=== PATIENT | female | born 1970 | race Caucasian/White ===

== ENCOUNTER 2025-01-16 22:14 | Emergency (ER) | payer MEDICARE, MEDICAID, SELFPAY ==
[2025-01-16 22:14] VITALS: RESP 18; O2SAT 78; BMI 44.6
[2025-01-16] MEDS: EPINEPHrine 0.1 MG/ML 10ML SYRINGE (CRASH CART) 1 MG IV ×8 (22:16→22:39)
[2025-01-16] MEDS: CALCIUM CHLORIDE 1GM/10ML SYRINGE (CRASH CART) 1 GM IVP (22:20)
[2025-01-16 22:46] LABS: VBG Base Excess -28.1 mmol/L (-2.4-2.3); VBG HCO3 9.8 mmol/L (23-30); VBG Oxygen Saturation 52.6 % (50-70); VBG PO2 47.4 mmol/L (28-40); VBG Total CO2 12.9 mmol/L (23-27)
[2025-01-16 22:47] LABS: Lactate Venous 21.9 mmol/L (0.4-2.0); VBG PCO2 103.3 mmol/L (35-51); VBG PH 6.59 mmol/L (7.31-7.41)
--- NOTE | 2025-01-16 23:31 | HMH.EDGENADL ---
Discharge Plan Disposition Patient Disposition: Date/Time: 01/16/25 10:40 Clinical Impressions Clinical Impression: Cardiac arrest, Hypertension Type 2 diabetes mellitus Qualifiers: Diabetes mellitus intermediate insulin use: with terminal carman use Discharge ED Provider: Polly Fischer Adult HPI General Stated complaint: Cardiac Arrest Time Seen by Provider: 01/16/25 22:45 Mode of Arrival: EMS Source of Information: EMS History of Present Illness HPI narrative: Patient is a 54-year-old female presenting in cardiac arrest. EMS states they were called to the house for complaint of unresponsive. They stated on their arrival, patient was awake and oriented complaining of cough and shortness of breath. In the custody of EMS, patient became acutely unresponsive and had an initial rhythm of PEA. EMS reports giving 6 epis and amp of bicarb. Patient's blood glucose was 325 for EMS. No additional information obtainable due to patient code. [facility] Disclaimer: The information contained in this section may have been updated after the patient was seen, as this information can be updated by other users. Social History (Updated 01/16/25 @ 23:50 by Polly Fischer MD) Smoking Status: Current every day smoker alcohol intake: current current occupational status: unemployed Travel in the last 8 weeks: None ROS Obtained: Yes unobtainable due to endotracheal tube Physical Exam General General appearance: obtunded and other (Unresponsive) Head Head exam: atraumatic and normocephalic Eye Eye exam: Present PERRL (4 mm bilaterally); Absent jaundice or conjunctival injection ENT ENT exam: Present other (ETT in place with bloody secretions) Chest Chest inspection: Present other (Rei device in place) Respiratory Respiratory exam: Present other (Rhonchorous breath sounds bilaterally) Cardiovascular Cardiovascular exam: Present other (Asystole) Abdominal Exam Abdominal exam: Present soft; Absent distention Extremities Exam Extremities exam: Present normal inspection Neurological Exam Neurological exam: Present other (GCS 3) Skin Skin exam: Present cyanosis and mottled Medical Decision Making Medical Records Screening: Per USPSTF and CDC recommendations, given the prevalence of disease in our region, it is our hospital?s policy to screen for HIV and viral Hepatitis for all patients aged 18 and over and those with ongoing risk factors. Brian Inquiry Pt receiving controlled substance: No Brian was queried for this patient: No Lab Data Lab results reviewed: Yes I reviewed the patient's lab results. Lab Results 01/16/25 22:43: VBG pH 6.59 L, VBG pCO2 103.3 H, VBG pO2 47.4 H, VBG HCO3 9.8 L, VBG Total CO2 12.9 L, VBG O2 Saturation 52.6, VBG Base Excess -28.1 L, VBG Lactic Acid 21.9 H Orders (Tests/Meds): ORDERS Category Date Time Status Venous Blood Gas Routine RT 01/16/25 22:43 Completed Medical Decision Narrative: In summary, this is a 54-year-old female presenting as CODE BLUE. Differential diagnosis includes but is not limited to, GA, PE, CVA, acute pulmonary hemorrhage, tension pneumothorax, aortic dissection, among others. Patient coded by EMS for 25 minutes prior to arrival. They reported a single instance of V. tach that was shocked. Patient's initial rhythm was PEA. On arrival, patient on the Rei which was in appropriate position for adequate pulse palpation. Patient was placed on the ZOLL. Patient given 1 g of calcium, 1 L normal saline and 7 doses of epinephrine. Every pulse check resulted in asystole. IV access was difficult, resulting in IO placed in the patient's right lower extremity. A VBG was ultimately obtained and resulted in severe acidosis of 6.5 with elevated lactate greater than 20. Patient's family came to bedside and were understanding of the futility of the situation. Patient had been coding in our department for 26 minutes, totaling 51 minutes without shockable rhythm. High concern for PE given hemorrhage in the patient's ETT and acute decompensation. Patient has a history of DM and tobacco use. Patient's states she has been sick for approximately 2 weeks and coughing significantly. He gave her coughing medicine today. Efforts were ceased and time of called at 2240. Polly Fischer MD Procedures Central Line Placement Left Femoral: Time Out Performed: No Patient Placed on Monitor/Pulse Ox: Yes Prep: mask and gloves Central Line Prep: Chlorhexidine scrub Ultrasound Used for Placement: Yes Central Line Lumen Inserted: triple Complications: catheter malposition Additional Comments: Blood return from single port, not confident in placement. Line removed and pressure held. IO Right Tibia: Time Out Performed: No IO Instrument Used to Penetrate the Cortex: battery powered IO drill Patient Tolerated Procedure: no complications Complications: none Critical Care Critical Care Time Critical Care Time: Yes Attestation: On 01/16/25, the high probability of a clinically significant, sudden or life threatening deterioration of the following system(s) required my full and direct attention, intervention and personal management. The time I documented below is in addition to time spent performing reported procedures but includes the following listed in this critical care notation. Total Time Total Critical Care Time: 60
--- NOTE | 2025-01-16 23:55 | PC.NURSE ---
[facility] called stating she is suitable for donation but awaiting release from staff psychiatrist. Stated they would call back within 1 hour if they had not had a call back.
--- NOTE | 2025-01-17 00:03 | PC.NURSE ---
[facility] notified that patient was released by terminologist.
--- NOTE | 2025-01-17 00:15 | PC.NURSE ---
Emanuel with [facility] called to state they were not going to follow the patient and that her body can be released to the home.
[2025-01-17 00:20] VITALS: BMI 44.6
--- NOTE | 2025-01-17 00:38 | PC.NURSE ---
Addendum entered by Laura Mcgraw RN 01/17/25 02:23: EPI was also given @2226 Original Note: CODE BLUE NOTE: 2214- Pt to ED via [facility] in cardiac arrest. MAU device in place. Per EMS, they administered 6mg total of epi, and 1 amp of bicarb. EMS reports family called 911 because she went unresponsive, but when EMS arrived to the residence, pt was awake, talking. Pt then went unresponsive, stopped breathing, and lost a pulse. ACLS was initiated. Pt was intubated by EMS, 18G IV was also placed to the left AC. EMS reports pt has a history of DM and she is a smoker, and has been sick for approx 2 weeks. FS with EMS was 325. 2215- pt moved to stretcher in room 3, zolle pads placed on pt. 2216- 1mg epi 2217- pulse check, no pulse, asystole, resume CPR per MAU device. 2217- FSBS 228 2219- pulse check, no pulse, asystole, resume CPR per MAU device. 2220- 1mg epi, 1G Calcium Chloride, and 1L LR infusing. 2221- pulse check, no pulse, asystole, resume CPR per MAU device. 2223- 1mg epi admin 2223- pulse check, no pulse, asystole, resume CPR per MAU device. 2225-pulse check, no pulse, asystole, resume CPR per MAU device. 2227- IO placed to Left tibia 2228- pulse check, no pulse, asystole, resume CPR per MAU device. 2229- 1mg epi admin 2230-pulse check, no pulse, asystole, resume CPR per MAU device. 2230-ETCO2- 8 2232-pulse check, no pulse, asystole, resume CPR per MAU device. 78% SPO2 2233- 1mg epi admin 2234- pulse check, no pulse, asystole, resume CPR per MAU device. 2236- 1mg epi admin 2236- pulse check, no pulse, asystole, resume CPR per MAU device. 2238- pulse check, no pulse, asystole, resume CPR per MAU device. 2239- pulse check, no pulse, asystole, resume CPR per MAU device. 2238- efforts ended by Dr Fischer and family. 2239 Time of 2250 [facility] ([phone]) contacted at this time. 2304 Paged dispatch for [facility] Coroner. 2308- [employer] Tar Roofer returned call and Pt was released by harness worker and [facility]- see other notes for times. 0058- pt left facility with [facility] staff.
--- NOTE | 2025-01-17 00:45 | PC.NURSE ---
noted that 2 silver hoops and set of ana maria stud earrings remained in patient as well as silver necklace to be sent with home.
[2025-01-17 01:37] VITALS: O2SAT 78
--- NOTE | 2025-01-17 01:43 | PC.NURSE ---
[facility] referral number- [id number]
[2025-01-17 01:44] VITALS: BP 00/00; PULSE 0; RESP 0; TEMP -17.7; TEMP 0; O2SAT 0
[2025-01-17 02:44] LABS: Reflex Lactic Add Lactic Reflex
[2025-01-17] MEDS: LACTATED RINGERS 1000ML 1,000 ML 999 ML IV (03:02)
== END 2025-01-16 22:40 | disposition expired ==
PROVIDERS: Emergency Provider Student in an Organized Health Care Education/Training Program; PCP Nurse Practitioner Family
DX: I46.9 Cardiac arrest, cause unspecified (principal); E11.9 Type 2 diabetes mellitus without complications; I10 Essential (primary) hypertension
CPT/HCPCS: 82803; 92950; 96361; 96374; 96375; 99291; C1751; J0171; J7120